=== PATIENT | female | born 1985 | race Caucasian/White ===

== ENCOUNTER 2025-05-01 18:03 | Emergency (ER) | payer BC ==
[~2025-05-01] VITALS: Ht 154.9 cm; Wt 77.0 kg
[2025-05-01 18:14] VITALS: O2SAT 99
[2025-05-01] MEDS ORDERED: P20 MT (19:06)
[2025-05-01] MEDS ORDERED: TRIA15CR61 TP (19:06)
[2025-05-01] MEDS ORDERED: DIPH25TA26 MT (19:09)
[2025-05-01] MEDS: PREDNISONE 20MG TABLET PO ONE (19:19)
[2025-05-01 19:31] VITALS: BP 131/78; PULSE 66; RESP 18; TEMP 36.7; O2SAT 99
== END 2025-05-01 19:50 | disposition home or self-care (01) ==
LOC: ER 18:03
DX: T78.40XA Allergy, unspecified, initial encounter (principal); L50.9 Urticaria, unspecified; Z88.8 Allergy status to other drugs, medicaments and biological substances; X58.XXXA Exposure to other specified factors, initial encounter; Y93.89 Activity, other specified; Y92.89 Other specified places as the place of occurrence of the external cause; Y99.8 Other external cause status
CPT/HCPCS: 99283; J7512